=== PATIENT | female | born 1985 | race African-American/Black ===

== ENCOUNTER 2020-09-26 18:31 | Emergency (ER) | payer OTHER ==
[~2020-09-26] VITALS: Ht 167.6 cm; Wt 61.7 kg
== END 2020-09-26 23:40 | disposition home or self-care (01) ==
LOC: ER 18:31
DX: S43.084A Other dislocation of right shoulder joint, initial encounter (principal); W18.09XA Striking against other object with subsequent fall, initial encounter; Y93.89 Activity, other specified; Y92.69 Other specified industrial and construction area as the place of occurrence of the external cause; Y99.8 Other external cause status